=== PATIENT | female | born 1950 ===

== ENCOUNTER 2018-11-06 07:45 | Inpatient (IN) | payer OTHER ==
[~2018-11-06] VITALS: Ht 160 cm; Wt 83.9 kg
[2018-11-06] MEDS ORDERED: SYNTHROID100 MCG PO (08:55)
[2018-11-13] MEDS ORDERED: PERCOCET 5-3251 EACH PO (16:07)
[2018-11-13] MEDS ORDERED: ELIQUIS2.5 MG PO (16:07)
[2018-11-13] MEDS ORDERED: DUI500 PO (16:07)
== END 2018-11-13 19:05 | DRG 470 ==
LOC: O/R 07:45 → SURH 11-11 05:45 → O/R 11-11 07:45 → SURH 11-11 07:45
PROVIDERS: ADMIT Orthopaedic Surgery
PROC: 0MNN0ZZ Release Right Knee Bursa and Ligament, Open Approach (ICD-10-PCS; 2018-11-11)
PROC: 0SRC0J9 Replacement of Right Knee Joint with Synthetic Substitute, Cemented, Open Approach (ICD-10-PCS; principal; 2018-11-11 07:00)
DX: M17.11 Unilateral primary osteoarthritis, right knee (principal); M80.00XA Age-related osteoporosis with current pathological fracture, unspecified site, initial encounter for fracture; D62 Acute posthemorrhagic anemia; Z96.651 Presence of right artificial knee joint; E07.89 Other specified disorders of thyroid